=== PATIENT | female | born 1995 | race Caucasian/White ===

== ENCOUNTER 2016-06-16 01:47 | Emergency (ER) | payer OTHER ==
[2016-06-16 02:00] VITALS: TEMP 97.5
[2016-06-16] MEDS ORDERED: diphenhydrAMINE 50 MG CAP PO STA (02:11)
[2016-06-16] MEDS ORDERED: METOCLOPRAMIDE 10 MG TAB PO STA (02:11)
--- NOTE | 2016-06-16 02:49 | ED ---
Eye Problem HPI - General Chief complaint: Eye Problems Stated complaint: Blurry Vision Time Seen by Provider: 06/16/16 01:57 Source: patient, RN notes reviewed Mode of arrival: ambulatory Limitations: no limitations - History of Present Illness Initial comments: This patient is 21-year-old woman who presents to be evaluated after she noticed that her vision appear little blurry starting tonight while she was working. This was followed shortly thereafter by the development of moderate left-sided headache. The patient states that this is not the worse headache that she's had. She left work and came here to be evaluated. She also feeling lipase and she noted some tingling of the bilateral hands. chief complaint: vision change -: hour(s) Onset Description: gradual Location: both eyes Place: work If Injury: none Eye Symptoms: blurry vision Severity: mild Associated Symptoms: headache Treatments Prior to Arrival: none - Related Data Home Medications Medication Instructions Recorded Confirmed Omeprazole [PriLOSEC] 20 mg PO AC-BRKFST 09/10/14 11/30/14 Previous Rx's Medication Instructions Recorded Ibuprofen [Motrin] 600 mg PO Q6HR PRN #20 tab 11/30/14 Allergies Allergy/AdvReac Type Severity Reaction Status Date / Time No Known Allergies Allergy Verified 11/30/14 21:35 Review of Systems ROS Statement: Those systems with pertinent positive or pertinent negative responses have been documented in the HPI. ROS Other: All systems not noted in ROS Statement are negative. Constitutional: Denies: fever, chills, weakness Eyes: Reports: vision change. Denies: eye pain, eye discharge ENT: Denies: ear pain, hearing loss Respiratory: Denies: cough, dyspnea Cardiovascular: Denies: chest pain, palpitations, syncope Gastrointestinal: Denies: abdominal pain, nausea, vomiting, diarrhea Genitourinary: Denies: dysuria Musculoskeletal: Denies: back pain Skin: Denies: rash Neurological: Reports: headache. Denies: weakness, numbness, paresthesias Psychiatric: Reports: anxiety Past Medical History Past Medical History: Asthma, GERD/Reflux, Rheumatoid Arthritis (RA) History of Any Multi-Drug Resistant Organisms: None Reported Past Surgical History: No Surgical Hx Reported Past Psychological History: No Psychological Hx Reported Smoking Status: Current every day smoker Past Alcohol Use History: Occasional Past Drug Use History: None Reported General Exam Limitations: no limitations General appearance: alert, in no apparent distress, anxious Head exam: Present: atraumatic, normocephalic Eye exam: Present: normal appearance, PERRL, EOMI. Absent: scleral icterus, conjunctival injection Pupils: Present: other (Funduscopic exam limited without dilation but no papilledema.) ENT exam: Present: normal oropharynx, TM's normal bilaterally Neck exam: Present: normal inspection, full ROM. Absent: meningismus Respiratory exam: Present: normal lung sounds bilaterally. Absent: respiratory distress, wheezes, rales, rhonchi, stridor Cardiovascular Exam: Present: regular rate, normal rhythm, normal heart sounds. Absent: systolic murmur, diastolic murmur, rubs, gallop GI/Abdominal exam: Present: soft. Absent: distended, tenderness, guarding Neurological exam: Present: alert, CN II-XII intact, normal gait. Absent: motor sensory deficit Skin exam: Present: warm, dry, intact, normal color. Absent: rash Course Vital Signs 06/16/16 06/16/16 01:56 04:08 Temperature 97.5 F L Pulse Rate 65 71 Respiratory 18 16 Rate Blood Pressure 130/70 118/70 O2 Sat by Pulse 97 98 Oximetry Medical Decision Making - Medical Decision Making Patient sts that her symptoms have improved following the migraine medication. Discussed appropriate follow-up and further care with her. She will return should the symptoms recur or if there is worsening in anyway. - Lab Data Lab Results 06/16/16 06/16/16 Range/Units 02:15 03:24 POC Glucose (mg/dL) 76 (75-99) mg/dL POC Glu Head Piece Assembler ID Pau Rao Urine HCG, Qual Not Detected (Not Detectd) Disposition Clinical Impression: Headache, Visual blurriness Disposition: HOME SELF-CARE Condition: Good Instructions: General Headache (ED), Blurred Vision (ED) Referrals: None,Stated [Primary Care Provider] - 1-2 days Rivera Silva MD [STAFF PHYSICIAN] - 1-2 days
[2016-06-16] MEDS ORDERED: ONDANSETRON ODT 4 MG TAB PO STA (03:07)
[2016-06-16] MEDS ORDERED: IBUPROFEN 400 MG TAB PO STA (03:07)
[2016-06-16 03:25] LABS: Glucose,Whole Blood 76 mg/dL (75-99)
[2016-06-16 04:09] VITALS: BP 118/70; PULSE 71; RESP 16
== END 2016-06-16 04:08 | disposition home or self-care (01) ==
LOC: EC 01:47
DX: R51 Headache (principal); H53.8 Other visual disturbances; K21.9 Gastro-esophageal reflux disease without esophagitis; Z79.899 Other long term (current) drug therapy; F17.200 Nicotine dependence, unspecified, uncomplicated
CPT/HCPCS: 36415; 81025; 99284

== ENCOUNTER → 2017-02-22 | Outpatient (CLI) | payer OTHER ==
--- NOTE | 2017-02-22 08:47 | NM ---
EXAMINATION TYPE: NM hepatobiliary w EF DATE OF EXAM: 02/22/2017 COMPARISON: NONE HISTORY: Right upper quadrant pain, R 10.11 TECHNIQUE: After the intravenous administration of 5.66 mCi Tc 99m Mebrofenin hepatobiliary scintigra phy is performed. Immediate images post injection. FINDINGS: There is satisfactory initial accumulation of tracer by the liver. The gallbladder is visualized wit hin 6 minutes. The small bowel activity is noted within 8 minutes. At one hour 8 ounces of oral ens ure plus is given to mimic CCK and gallbladder ejection fraction is calculated at 84 %. Therefore th ere is no scintigraphic evidence of cystic or common bile duct obstruction to suggest acute cholecyst itis or gallbladder dyskinesia. IMPRESSION: Gallbladder ejection fraction is 84%. No cystic duct obstruction.
== END | disposition home or self-care (01) ==
LOC: RADNMMAIN 06:39
PROVIDERS: ATTEND Family Medicine
DX: R10.11 Right upper quadrant pain (principal)
CPT/HCPCS: 78226; A9537

== ENCOUNTER 2017-04-03 08:25 | Day surgery (SDC) | payer OTHER ==
[2017-03-27 15:53] VITALS: BMI 38.4
[~2017-04-03 08:25] MED LIST: DEXAMETHASONE SOD PHOSPHATE 10 MG/ML 1 ML VIAL IV ONE; HEPARIN SODIUM,PORCINE 5,000 UNIT/ML 1 ML VIAL SQ ONE; LACTATED RINGERS 1,000 ML IV SCH; LIDOCAINE 1% 20 ML VIAL (10MG/ML) FOR IV START INTRADERMA PRN; ONDANSETRON 4 MG/2 ML VIAL IVP ONE; SCOPOLAMINE 1.5MG/72HR PATCH TRANSDERM ONE; ceFAZolin IN SWFI 2 GM/20 ML SYRINGE IVP ONE
[2017-04-03 09:40] VITALS: RESP 16
--- NOTE | 2017-04-03 10:23 | P.GSHP ---
History of Present Illness H&P Date: 04/03/17 Chief Complaint: Right upper quadrant pain This a 22-year-old female referred from [facility]. Patient's had complaints were quadrant pain. Her recent HIDA scan shows abnormal ejection fraction consistent with chronic cholecystitis. She presents today for laparoscopic cholecystectomy. Past Medical History Past Medical History: Asthma, GERD/Reflux, Rheumatoid Arthritis (RA) History of Any Multi-Drug Resistant Organisms: None Reported Past Surgical History: No Surgical Hx Reported Past Anesthesia/Blood Transfusion Reactions: No Reported Reaction Additional Past Anesthesia/Blood Transfusion Reaction / Comment(s): no hx of general anesthesia or blood transfusion Smoking Status: Current every day smoker - Past Family History Mother Family Medical History: No Reported History Father Family Medical History: No Reported History Medications and Allergies Home Medications Medication Instructions Recorded Confirmed Type Omeprazole [PriLOSEC] 20 mg PO AC-BRKFST 09/10/14 03/27/17 History Loratadine [Claritin] 10 mg PO DAILY 03/27/17 03/27/17 History Montelukast Sodium [Singulair] 10 mg PO QAM 03/27/17 03/27/17 History Allergies Allergy/AdvReac Type Severity Reaction Status Date / Time No Known Allergies Allergy Verified 04/03/17 09:37 Surgical - Exam Vital Signs Temp Pulse Resp BP Pulse Ox 97.6 F 74 16 118/75 99 04/03/17 09:39 04/03/17 09:39 04/03/17 09:39 04/03/17 09:39 04/03/17 09:39 - General well developed, no distress - Eyes PERRL - ENT normal pinna - Neck no masses - Respiratory normal expansion - Cardiovascular Rhythm: regular - Abdomen Abdomen: soft, non tender Assessment and Plan Assessment: Chronic cholecystitis. We'll perform laparoscopic cholecystectomy.
[2017-04-03] MEDS ORDERED: NEOSTIGMINE 1 MG/ML 10 ML VIAL ONE (10:45)
[2017-04-03] MEDS ORDERED: SUCCINYLCHOLINE CHLORIDE 100 MG/5 ML SYR IV ONE (10:45)
[2017-04-03] MEDS ORDERED: ONDANSETRON 4 MG/2 ML VIAL ONE (10:45)
[2017-04-03] MEDS ORDERED: GLYCOPYRROLATE 0.2 MG/ML 2 ML VIAL ONE (10:45)
[2017-04-03] MEDS ORDERED: ROCURONIUM BROMIDE 10 MG/ML 10 ML VIAL IV ONE (10:45)
[2017-04-03] MEDS ORDERED: PROPOFOL 10 MG/ML 20 ML VIAL IV ONE (10:45)
[2017-04-03] MEDS ORDERED: MIDAZOLAM 2 MG/2 ML VIAL ONE (10:45)
[2017-04-03] MEDS ORDERED: LIDOCAINE 1% INJ 10MG/ML (20 ML MDV) ONE (10:45)
[2017-04-03] MEDS ORDERED: fentaNYL (PF) 50 MCG/ML 2 ML AMP ONE (10:45)
[2017-04-03] MEDS ORDERED: BUPIVACAINE (PF) 0.25% 30 ML VIAL SQ ONE (10:59)
[2017-04-03] MEDS ORDERED: BUPIVACAINE-EPI 0.5%-1:200,000 10 ML VIAL SQ ONE (11:00)
--- NOTE | 2017-04-03 11:40 | P.OP ---
Date of Procedure: 04/03/17 Preoperative Diagnosis: Cholecystitis Postoperative Diagnosis: Cholecystitis Procedure(s) Performed: Laparoscopic cholecystectomy Anesthesia: TALIA Surgeon: Cole Colvin Estimated Blood Loss (ml): 5 Pathology: other (Gallbladder) Condition: stable Disposition: PACU Description of Procedure: The patient was placed on the operating table. The patient received a general endotracheal tube anesthesia. The patients abdomen was prepped and draped in the usual sterile fashion. Through an infraumbilical stab incision, the fascia of the anterior abdominal wall was grasped with a pair of Kochers and then the Veress needle was placed in the peritoneal cavity. Position of the Veress needle was confirmed with positive drop test. The abdomen was then insufflated. After adequate insufflation, the 10 mm trocar was placed in the peritoneal cavity. Following this the laparoscope was placed in the peritoneal cavity. The patient was placed in the head-up, right side up position and then a 5 mm trocar was placed in the right lateral and right subcostal position under direct visualization. A 8 mm trocar was placed in the epigastric position. The gallbladder was grasped in the fundus and infundibulum. Traction on the gallbladder was placed in the lateral and the cephalad positions. The triangle of Calot was visualized.. The cystic duct was bluntly dissected until the union of the cystic duct and common bile duct was seen. The cystic duct was then divided and sealed with the Harmonic scissors. A PDS Endoloop was then placed throughout the cystic duct stump. The cystic artery divided and sealed with the Harmonic scissors. The gallbladder was then removed from the liver bed using Harmonic scissors. The gallbladder was then extracted through the epigastric port site. Operative field was checked for any bleeding spots and Harmonic scissors was used to coagulate the liver bed. The abdomen was irrigated. The trocars were removed. The skin was closed using interrupted 3-0 Vicryl suture. Dermabond dressing were applied. The patient tolerated the procedure well.
[2017-04-03] MEDS: HYDROmorphone 0.5 MG/0.5 ML SYRINGE IVP PRN ×4 (11:50→12:06)
[2017-04-03] MEDS ORDERED: MEPERIDINE 50 MG/ML SYRINGE IVP ONE ×2 (12:20→12:30)
[2017-04-03 12:22] VITALS: TEMP 98.4
[2017-04-03] MEDS ORDERED: LACTATED RINGERS 1,000 ML IV ONE ×2 (12:28)
[2017-04-03] MEDS ORDERED: HYDROcodone/APAP 7.5-325MG 1 EACH TAB PO ONE (13:25)
[2017-04-03 13:46] VITALS: BP 121/69; PULSE 73
== END 2017-04-03 14:29 | disposition home or self-care (01) ==
LOC: OR 08:25
PROVIDERS: ATTEND Surgery
DX: K81.1 Chronic cholecystitis (principal); M06.9 Rheumatoid arthritis, unspecified; J45.909 Unspecified asthma, uncomplicated; K21.9 Gastro-esophageal reflux disease without esophagitis; F17.200 Nicotine dependence, unspecified, uncomplicated; Z79.899 Other long term (current) drug therapy
CPT/HCPCS: 47562; 81025; 88304; J2250; J1644; J1100; J2710; J2175; J0690; J2405; J2001; J3010; J0330; J2704; J1170

== ENCOUNTER 2017-04-03 20:58 | Emergency (ER) | payer OTHER ==
[2017-04-03 21:15] VITALS: BP 141/76; PULSE 71; RESP 20; TEMP 98.1
--- NOTE | 2017-04-03 22:22 | ED ---
General Adult HPI - General Chief complaint: Recheck/Abnormal Lab/Rx Stated complaint: post op incision problem Time Seen by Provider: 04/03/17 22:01 Source: patient, family, RN notes reviewed Mode of arrival: ambulatory Limitations: no limitations - History of Present Illness Initial comments: This is a 22-year-old female who presents to the emergency department with chief complaint of post-op bleeding. Patient states that she had laparoscopic cholecystectomy surgery this morning at [address] Colvin. She states that she noticed bleeding at incision site below belly button. Later she noticed a little bit of bleeding from mid upper abdomen incision site. She states that there are pieces of tape overlying each incision site and that the bleeding has gone through the tape. Denies any other problems. Denies fever, chills, chest pain, shortness of breath, abdominal pain, nausea or vomiting, constipation or diarrhea, dysuria or hematuria, numbness or tingling, headache or vision changes. - Related Data Home Medications Medication Instructions Recorded Confirmed Omeprazole [PriLOSEC] 20 mg PO AC-BRKFST 09/10/14 04/03/17 Loratadine [Claritin] 10 mg PO DAILY 03/27/17 04/03/17 Montelukast Sodium [Singulair] 10 mg PO QAM 03/27/17 04/03/17 Previous Rx's Medication Instructions Recorded Docusate [Colace] 100 mg PO BID #20 capsule 04/03/17 HYDROcodone/APAP 7.5-325MG [[place] 1 each PO Q4H PRN #30 tab 04/03/17 7.5] Allergies Allergy/AdvReac Type Severity Reaction Status Date / Time No Known Allergies Allergy Verified 04/03/17 21:15 Review of Systems ROS Statement: Those systems with pertinent positive or pertinent negative responses have been documented in the HPI. ROS Other: All systems not noted in ROS Statement are negative. Past Medical History Past Medical History: Asthma, GERD/Reflux, Rheumatoid Arthritis (RA) History of Any Multi-Drug Resistant Organisms: None Reported Past Surgical History: No Surgical Hx Reported Past Anesthesia/Blood Transfusion Reactions: No Reported Reaction Additional Past Anesthesia/Blood Transfusion Reaction / Comment(s): no hx of general anesthesia or blood transfusion Past Psychological History: No Psychological Hx Reported Smoking Status: Current every day smoker - Past Family History Mother Family Medical History: No Reported History Father Family Medical History: No Reported History General Exam - General Exam Comments Initial Comments: General: Awake and alert, well-developed; in no apparent distress. HEENT: Head atraumatic, normocephalic. Pupils are equal, round and reactive to light. Extraocular movements intact. Oropharynx moist without erythema or exudate. Neck: Supple. Normal ROM. Cardiovascular: Regular rate and rhythm. No murmurs, rubs or gallops. Chest symmetrical. Respiratory: Lungs clear to auscultation bilaterally. No wheezes, rales or rhonchi. Normal respiratory effort with no use of accessory muscles. Abdomen: Soft, non-tender, non-distended. 4 lap yo incision sites present with overlying tape. Incision site inferior to the umbilicus has bled through the dressing. Once dressing is removed, there is mild bleeding noted. Musculoskeletal: Normal ROM, no tenderness bilateral upper and lower extremities. Ambulating normally. Skin: Artois, warm and dry without rashes or lesions. Neurological: Alert and oriented x3. CN II-XII grossly intact. Speech is fluent and answers are appropriate. No focal neuro deficits. Psychiatric: Normal mood and affect. No overt signs of depression or anxiety noted. Limitations: no limitations Course Vital Signs 04/03/17 21:11 Temperature 98.1 F Pulse Rate 71 Respiratory 20 Rate Blood Pressure 141/76 O2 Sat by Pulse 96 Oximetry Medical Decision Making - Medical Decision Making This is a 22-year-old female who presents to the emergency department with chief complaint of postoperative bleeding. Patient had a lap yo with Dr. Colvin this morning. She noticed bleeding from the incision sites. Tape was removed and new dressing was applied. She is in no acute distress. Advised patient to contact her surgeon if bleeding does not stop. She is in agreement and voices understanding. All questions were answered. Disposition Clinical Impression: Encounter for wound re-check Disposition: HOME SELF-CARE Condition: Good Instructions: Postoperative Bleeding (ED) Additional Instructions: If bleeding continues please call Dr. Colvin tomorrow. Please follow up with primary care provider within 1-2 days. Return to emergency department if symptoms should worsen or any concerns arise. Referrals: Rita Tavarez DO [Primary Care Provider] - 1-2 days Time of Disposition: 22:22
== END 2017-04-03 22:29 | disposition home or self-care (01) ==
LOC: EC 20:58
DX: Z48.815 Encounter for surgical aftercare following surgery on the digestive system (principal); J45.909 Unspecified asthma, uncomplicated; K21.9 Gastro-esophageal reflux disease without esophagitis; F17.200 Nicotine dependence, unspecified, uncomplicated; Z79.899 Other long term (current) drug therapy
CPT/HCPCS: 99283

== ENCOUNTER 2017-08-29 03:17 | Emergency (ER) | payer OTHER ==
[2017-08-29 03:24] VITALS: BP 133/78; PULSE 70; RESP 18; TEMP 96.8
[2017-08-29] MEDS ORDERED: predniSONE 20 MG TAB PO STA (03:29)
[2017-08-29] MEDS ORDERED: KETOROLAC 30 MG/ML 1 ML VIAL IVP STA (03:30)
--- NOTE | 2017-08-29 03:38 | ED ---
General Adult HPI - General Chief complaint: Extremity Injury, Upper Stated complaint: Shoulder pain Time Seen by Provider: 08/29/17 03:24 Source: patient, RN notes reviewed, old records reviewed Mode of arrival: ambulatory Limitations: no limitations - History of Present Illness Initial comments: 22-year-old female presenting with right neck and shoulder pain. Patient's pain began with a stiff neck approximately 2 days ago. She's had worsening pain with movement. Denies any specific injury or trauma. Patient has been taking Motrin with minimal relief. She has had this in the past and it has resolved with steroid treatment. She does have some shooting pain into her arm. No weakness. No numbness or tingling. Denies chest pain or shortness of breath. Denies palpitations. Denies difficult to breathing. - Related Data Home Medications Medication Instructions Recorded Confirmed Omeprazole [PriLOSEC] 20 mg PO AC-BRKFST 09/10/14 04/03/17 Loratadine [Claritin] 10 mg PO DAILY 03/27/17 04/03/17 Montelukast Sodium [Singulair] 10 mg PO QAM 03/27/17 04/03/17 Previous Rx's Medication Instructions Recorded Docusate [Colace] 100 mg PO BID #20 capsule 04/03/17 HYDROcodone/APAP 7.5-325MG [[place] 1 each PO Q4H PRN #30 tab 04/03/17 7.5] Diazepam [Valium] 2 mg PO BID PRN #4 tab 08/29/17 predniSONE 20 mg PO DAILY #5 tab 08/29/17 Allergies Allergy/AdvReac Type Severity Reaction Status Date / Time No Known Allergies Allergy Verified 08/29/17 03:23 Review of Systems ROS Statement: Those systems with pertinent positive or pertinent negative responses have been documented in the HPI. ROS Other: All systems not noted in ROS Statement are negative. Past Medical History Past Medical History: Asthma, GERD/Reflux, Rheumatoid Arthritis (RA) History of Any Multi-Drug Resistant Organisms: None Reported Past Surgical History: Cholecystectomy Past Anesthesia/Blood Transfusion Reactions: No Reported Reaction Additional Past Anesthesia/Blood Transfusion Reaction / Comment(s): no hx of general anesthesia or blood transfusion Past Psychological History: No Psychological Hx Reported Smoking Status: Current every day smoker Past Alcohol Use History: Occasional Past Drug Use History: None Reported - Past Family History Mother Family Medical History: No Reported History Father Family Medical History: No Reported History General Exam Limitations: no limitations General appearance: alert, in no apparent distress Head exam: Present: atraumatic, normocephalic Eye exam: Present: normal appearance, PERRL, EOMI ENT exam: Present: normal exam Neck exam: Present: normal inspection, tenderness (Tenderness and spasm in the right trapezius muscle. No midline Cervical tenderness.), full ROM Respiratory exam: Present: normal lung sounds bilaterally. Absent: respiratory distress, wheezes, rales Cardiovascular Exam: Present: regular rate, normal rhythm GI/Abdominal exam: Present: soft. Absent: distended Extremities exam: Present: normal inspection, full ROM, other (Right upper extremity: Good range of motion at the shoulder. Distal pulses intact. Fruit Picker strength is normal. Pain in the right trapezius muscle.) Back exam: Present: normal inspection, full ROM. Absent: tenderness Neurological exam: Present: alert, oriented X3, CN II-XII intact. Absent: motor sensory deficit Course Vital Signs 08/29/17 03:19 Temperature 96.8 F L Pulse Rate 70 Respiratory 18 Rate Blood Pressure 133/78 O2 Sat by Pulse 100 Oximetry Medical Decision Making - Medical Decision Making 22-year-old female with 2 day history of right neck shoulder and upper back pain. Patient does have tenderness in the right trapezius muscle. Patient drove herself to the emergency department. She will be given Toradol and prednisone in the emergency department. She states that prednisone has significantly improved the symptoms when she has had them in the past. She will also be given a prescription for muscle relaxer. Patient is currently on her menstrual cycle. No concern for Disposition Clinical Impression: Trapezius muscle spasm Disposition: HOME SELF-CARE Condition: Good Instructions: Spasmodic Torticollis (ED) Prescriptions: Diazepam [Valium] 2 mg PO BID PRN #4 tab PRN Reason: Muscle Spasm predniSONE 20 mg PO DAILY #5 tab Is patient prescribed a controlled substance at d/c from ED?: Yes If prescribed controlled substance>3 days was MAPS reviewed?: No When asked, does pt state using other controlled substances?: No Referrals: Rita Tavarez DO [Primary Care Provider] - 1-2 days Time of Disposition: 03:37
== END 2017-08-29 03:44 | disposition home or self-care (01) ==
LOC: EC 03:17
DX: M62.838 Other muscle spasm (principal); J45.909 Unspecified asthma, uncomplicated; K21.9 Gastro-esophageal reflux disease without esophagitis; M06.9 Rheumatoid arthritis, unspecified; F17.200 Nicotine dependence, unspecified, uncomplicated; Z79.899 Other long term (current) drug therapy
CPT/HCPCS: 99283; 96374; J1885; J7512

== ENCOUNTER → 2021-10-20 | Outpatient (CLI) | payer BC ==
[2021-10-20 15:47] LABS: Basophils # (A) 0.03 X 10*3/uL (0.00-0.10); Basophils % (A) 0.3 %; Eosinophils # (A) 0.13 X 10*3/uL (0.04-0.35); Eosinophils % (A) 1.5 %; HCT 39.8 % (37.2-46.3); HGB 12.5 g/dL (12.0-15.0); Immature Grans, Automated 0.2 %; Lymphocytes % (A) 32.5 %; MCH 26.3 pg (27.0-32.0); MCHC 31.4 g/dL (32.0-37.0); MCV 83.6 fL (80.0-97.0); Mean Platelet Volume 10.2 fL (9.5-12.2); Monocytes # (A) 0.51 X 10*3/uL (0.20-1.00); Monocytes % (A) 5.9 %; NRBC Per 100 WBC 0 /100 WBCS (0.0-0.0); Neutrophils # (A) 5.13 X 10*3/uL (1.80-7.70); Neutrophils % (A) 59.6 %; Platelet Count 349 X 10*3/uL (140-440); RBC 4.76 X 10*6/uL (4.10-5.20); RDW 13.7 % (11.5-14.5); WBC 8.62 X 10*3/uL (4.50-10.00)
[2021-10-20 15:59] LABS: Hepatitis C IgG Antibody Nonreactive (Nonreactive)
[2021-10-20 16:04] LABS: ALT 34 U/L (8-44); AST 19 U/L (13-35); African American GFR (CKD) 134.6 (60.0-200.0); Albumin 4.1 g/dL (3.8-4.9); Albumin/Globulin Ratio 1.59 (1.60-3.17); Alkaline Phosphatase 79 U/L (41-126); BUN/Creat Ratio 11.08 Ratio (12.00-20.00); Blood Urea Nitrogen 7.9 mg/dL (9.0-27.0); Calcium 9.2 mg/dL (8.7-10.3); Carbon Dioxide 22.7 mmol/L (20.0-27.5); Chloride 108 mmol/L (96-109); Chol/HDL Ratio 5.43 Ratio; Globulin 2.6 g/dL (1.6-3.3); Glucose 90 mg/dL (70-110); LDL Cholesterol,Calculated 136.6 mg/dL (0.0-131.0); Non-African American GFR(CKD) 116.1 (60.0-200.0); Potassium 4.2 mmol/L (3.5-5.5); Sodium 142 mmol/L (135-145); Total Protein 6.7 g/dL (6.2-8.2)
[2021-10-20 16:09] LABS: Rheumatoid Factor, Qnt <10 IU/mL (0-15)
[2021-10-20 18:58] LABS: Erythrocyte Sedimentation Rate 43 mm/Hr (0-20)
== END | disposition home or self-care (01) ==
LOC: LABWHC1 09:36
PROVIDERS: ATTEND Family Medicine
DX: Z00.00 Encounter for general adult medical examination without abnormal findings (principal); Z11.59 Encounter for screening for other viral diseases; E28.2 Polycystic ovarian syndrome; M08.00 Unspecified juvenile rheumatoid arthritis of unspecified site
CPT/HCPCS: 36415; 80053; 80061; 82627; 84402; 84403; 84439; 84443; 85025; 85652; 86038; 86140; 86431; 86803